=== PATIENT | male | born 1945 | race Caucasian/White ===

== ENCOUNTER 2019-01-12 18:42 | Emergency (ER) | payer MEDICARE, BC ==
[2019-01-12] MEDS ORDERED: Aspirin 81 MG Tab.Chew ONE (18:53)
[2019-01-12] MEDS ORDERED: Nitroglycerin 0.4 MG Tab.SL SL ONE (19:07)
--- NOTE | 2019-01-12 19:13 | EDM.PDOC ---
ED HPI GENERAL MEDICAL PROBLEM - General Chief Complaint: Chest Pain Stated Complaint: CHEST PAINS Time Seen by Provider: 01/12/19 19:02 Source of Information: Reports: Patient History Limitations: Reports: No Limitations - History of Present Illness INITIAL COMMENTS - FREE TEXT/NARRATIVE: This 73 yo male patient reports to the ED with right sided chest pain. The patient reports his pain has been intermittent over the past 2 days, but got worse today at about 1500. The patient reports no personal history of cardiac issue, but he has a strong family history of cardiac disease. The patient reports he did take 2 baby aspirin prior to coming to the ED. The patient reports his pain is a constant pain in the right side of his chest and rates his pain at a 7/10. The patient reports he did fall last night, but his pain had been intermittent prior to the fall. The patient reports no history of breathing problems and no history of GERD. Onset Date: 01/10/19 Duration: Intermittent Location: Reports: Chest (right chest) Quality: Reports: Other Severity: Moderate Improves with: Reports: None Worsens with: Reports: None Context: Reports: Other Associated Symptoms: Reports: Chest Pain Treatments [employer]: Reports: Aspirin Mid-Sternal Chest Pain Score (Numeric/FACES): 7 - Related Data Allergies Allergy/AdvReac Type Severity Reaction Status Date / Time No Known Allergies Allergy Verified 01/12/19 18:46 Home Meds: Home Meds . [Unable to Verify Home Med List] 12/20/17 [History] Past Medical History - Past Health History Medical/Surgical History: Denies Medical/Surgical History Cardiovascular History: Reports: High Cholesterol - Infectious Disease History Infectious Disease History: Reports: Measles - Past Surgical History Musculoskeletal Surgical History: Reports: Shoulder Surgery Other Musculoskeletal Surgeries/Procedures:: L) shoulder, back surgery Social & Family History - Family History Family Medical History: Noncontributory - Tobacco Use Smoking Status *Q: Never Smoker Second Hand Smoke Exposure: Yes - Caffeine Use Caffeine Use: Reports: None - Recreational Drug Use Recreational Drug Use: No ED ROS GENERAL - Review of Systems Review Of Systems: ROS reveals no pertinent complaints other than HPI. ED EXAM, GENERAL - Physical Exam Exam: See Below Exam Limited By: No Limitations General Appearance: Alert, WD/WN, Moderate Distress Eye Exam: Bilateral Eye: EOMI, Normal Inspection, PERRL Nose: Normal Inspection, Normal Mucosa, No Blood Throat/Mouth: Normal Inspection, Normal Lips, Normal Teeth, Normal Gums, Normal Oropharynx, Normal Voice, No Airway Compromise Head: Atraumatic, Normocephalic Neck: Normal Inspection, Supple, Non-Tender, Full Range of Motion Respiratory/Chest: No Respiratory Distress, Lungs Clear, Normal Breath Sounds, No Accessory Muscle Use, Chest Non-Tender Cardiovascular: Normal Peripheral Pulses, Regular Rate, Rhythm, No Edema, No Gallop, No JVD, No Murmur, No Rub GI/Abdominal: Normal Bowel Sounds, Soft, Non-Tender, No Organomegaly, No Distention, No Abnormal Bruit, No Mass (Male) Exam: Deferred Rectal (Males) Exam: Deferred Back Exam: Normal Inspection, Full Range of Motion, NT Extremities: Normal Inspection, Normal Range of Motion, Non-Tender, Normal Capillary Refill, No Pedal Edema Neurological: Alert, Oriented, CN II-XII Intact, Normal Cognition, Normal Gait, Normal Reflexes, No Motor/Sensory Deficits Psychiatric: Normal Affect, Normal Mood Skin Exam: Warm, Dry, Intact, Normal Color, No Rash Lymphatic: No Adenopathy Course - Vital Signs Last Recorded V/S: Last Vital Signs Temp 36.4 C 01/12/19 18:47 Pulse 65 01/12/19 18:47 Resp 20 01/12/19 18:47 BP 155/73 H 01/12/19 19:11 Pulse Ox 98 01/12/19 18:47 - Orders/Labs/Meds Orders: Active Orders 24 hr Category Date Time Status EKG 12 Lead [EKG Documentation Completion] [RC] STAT Care 01/12/19 18:45 Active Labs: Laboratory Tests 01/12/19 01/12/19 Range/Units 18:55 18:55 WBC 7.2 (5.0-10.0) 10^3/uL RBC 5.39 (4.6-6.2) 10^6/uL Hgb 15.3 (14.0-18.0) g/dL Hct 45.3 (40.0-54.0) % MCV 84.0 (80-100) fL MCH 28.4 (27.0-34.0) pg MCHC 33.8 (33.0-35.0) g/dL Plt Count 193 (150-450) 10^3/uL Neut % (Auto) 56.7 (42.2-75.2) % Lymph % (Auto) 31.5 (20.5-50.1) % Norman % (Auto) 9.7 H (2-8) % Eos % (Auto) 1.8 (1.0-3.0) % Baso % (Auto) 0.3 (0.0-1.0) % Sodium 137 (135-145) mmol/L Potassium 4.0 (3.6-5.0) mmol/L Chloride 102 (101-111) mmol/L Carbon Dioxide 27.0 (21.0-31.0) mmol/L Anion Gap 12.0 BUN 21 H (7-18) mg/dL Creatinine 0.9 (0.6-1.3) mg/dL Est Cr Clr Drug Dosing 70.38 mL/min Estimated GFR (MDRD) > 60 BUN/Creatinine Ratio 23.33 Glucose 164 H (74-105) mg/dL Calcium 8.7 (8.4-10.2) mg/dl Total Bilirubin 0.7 (0.2-1.0) mg/dL AST 29 (10-42) IU/L ALT 38 (10-60) IU/L Alkaline Phosphatase 62 (42-121) IU/L Troponin I < 0.02 (0.00-0.02) ng/ml Total Protein 7.0 (6.7-8.2) g/dl Albumin 4.1 (3.2-5.5) g/dl Globulin 2.9 Albumin/Globulin Ratio 1.41 Meds: Medications Discontinued Medications Generic Name Dose Route Start Last Admin Trade Name Juan PRN Reason Stop Dose Admin Aspirin Confirm 01/12/19 18:53 01/12/19 18:55 Aspirin Administered 01/12/19 18:54 81 mg Dose Administration 81 mg .ROUTE .STK-MED ONE Nitroglycerin 0.4 mg 01/12/19 19:07 01/12/19 19:11 Nitrostat SL 01/12/19 19:08 0.4 mg ONETIME ONE Administration Departure - Departure Time of Disposition: 20:06 Disposition: Home, Self-Care 01 Condition: Fair Clinical Impression: Nonspecific chest pain Instructions: Nonspecific Chest Pain, [id number] Forms: ED Department Discharge Care Plan Goals: The patient was advised of the examination, lab, EKG and x-ray result during the visit. The patient was encourage to continue to monitor his symptoms. The patient should follow-up with his primary care facility for continued evaluation and management. If the patient has any additional symptoms or concerns, the patient should either return to the emergency department or visit his primary care facility.
[2019-01-12 19:24] LABS: CHLORIDE,CL 102 mmol/L (101-111); SODIUM,NA 137 mmol/L (135-145)
== END 2019-01-12 20:20 | disposition home or self-care (01) ==
LOC: DL.ED 18:42
DX: R07.9 Chest pain, unspecified (principal)
CPT/HCPCS: 36415; 71045; 80053; 84484; 85025; 93005; 99285; A9270

== ENCOUNTER 2023-08-17 05:49 | Day surgery (SDC) | payer MEDICARE, BC ==
[2023-08-17] MEDS ORDERED: Midazolam 1 MG/ML 2 ML SDV ONE (06:12)
[2023-08-17] MEDS ORDERED: fentaNYL 100 MCG/2 ML SDV ONE (06:13)
[2023-08-17] MEDS: Dextrose 5%-0.45% NaCl 1,000 ML IV SCH (06:15)
[2023-08-17] MEDS: fentaNYL 100 MCG/2 ML SDV IV ONE ×2 (06:50→06:51)
[2023-08-17] MEDS: Midazolam 1 MG/ML 2 ML SDV IV ONE ×4 (06:51→06:57)
== END 2023-08-17 08:20 | disposition home or self-care (01) ==
LOC: DL.ENDO 05:49
PROVIDERS: ATTEND Internal Medicine Gastroenterology
DX: Z12.11 Encounter for screening for malignant neoplasm of colon (principal); D12.4 Benign neoplasm of descending colon; K57.30 Diverticulosis of large intestine without perforation or abscess without bleeding; K64.8 Other hemorrhoids; K21.9 Gastro-esophageal reflux disease without esophagitis; E78.5 Hyperlipidemia, unspecified; E66.9 Obesity, unspecified; Z68.31 Body mass index [BMI] 31.0-31.9, adult
CPT/HCPCS: 82947; 88305; J2250; J3010; J7042